=== PATIENT | male | born 1955 | race Caucasian/White ===

== ENCOUNTER 2017-10-15 13:45 | Observation (INO) | payer OTHER, SELFPAY ==
[2017-10-15] VITALS (18 sets, daily range): BP systolic 133–175; BP diastolic 71–87; PULSE 80–96; RESP 9–24; TEMP 36.2–36.7; O2SAT 95–100; BMI 30.5; BMI 30.6; BMI 29.2
--- NOTE | 2017-10-15 13:55 | RAD_ITS ---
STUDY: X-RAY CHEST REASON FOR EXAM: Male, 62 years old. 45 min after eating steak sandwich, felt throat closing, numbness to face and jaw, HX HEART CATH 2008 TECHNIQUE: Single AP portable view of the chest. COMPARISON: January 18, 2016 FINDINGS: Lungs are underexpanded. There is right new basilar atelectasis.. There is no demonstrated pleural abnormality. Normal size heart. Normal mediastinum and cecelia. Normal visualized pulmonary arteries. Normal visualized aortic arch and descending thoracic aorta. Normal visualized thoracic spine. Normal visualized ribs, clavicles, and shoulders. There is no demonstrated abnormality of the visualized soft tissue structures of the upper abdomen. RAD/Chest 1 View (Portable) IMPRESSION: There is right new basilar atelectasis.. Electronically Signed: Bianca Mendez MD at 14:40 EDT , Service support ,
[2017-10-15] MEDS: DiphenhydrAMINE 50 MG/ML Syringe IV ×2 (13:58→23:26)
[2017-10-15] MEDS: MethylPREDNISolone 125 MG/2 ML Vial IV (13:58)
[2017-10-15] MEDS: Albuterol 2.5 MG/3 ML VIAL.NEB. INHALATION (14:04)
[2017-10-15 14:51] LABS: Absolute Lymphocyte Count 2.76 X10^3/ul (0.83-4.51); Absolute Neutrophil Count 5.1 X10^3/uL (2.0-7.7); Basophil# 0.03 X10^3/uL; Basophil% 0.4 % (0-1); Eosinophil# 0.07 X10^3/uL; Eosinophils% 0.8 % (0-5); Hematocrit 39.1 % (40-54); Lymphocyte # 2.76 X10^3/ul (4.0); Lymphocyte % 32.5 % (19-41); Mean Corp Hgb Conc 33.2 g/gl (32-36); Mean Corpuscular Volume 87.3 fL (80-94); Mean Platelet Vol. 11.7 fl (6.2-12.0); Monocyte# 0.52 X10^3/uL; Monocyte% 6.1 % (0-10); Neutrophil # 5.11 X10^3/uL (2.7-7.7); Neutrophil % 60.1 % (47-70); Platelet Count 239 K/mm3 (150-450); RBC Distribution Width CV 12.8 % (11.6-14.6); RBC Distribution Width SD 41.1 fl (35.1-43.9); Red Blood Count 4.48 M/mm3 (4.6-6.2); White Blood Count 8.5 K/mm3 (4.4-11.0)
[2017-10-15 14:56] LABS: POSITIVE COUNT NO; POSITIVE DIFFERENTIAL NO; POSITIVE MORPHOLOGY NO
--- NOTE | 2017-10-15 15:05 | ED.VISSUMM ---
- ER Visit Summary Date of Service: 10/15/17 Chief Complaint: [allergic reaction] History of Present Illness: The patient is a 62 M [that presents with severe allergic reaction symptoms. He was at work when he noted his face to feel numb and funny and his eyes got very swollen. He had a red itchy hives and began to feel shortness of breath. EMS was called and he was given EpiPen injection and route. Upon arrival patient is tachycardic but his blood pressure is stable. He states he is having difficulty swallowing. He has bilateral periorbital edema and urticaria to his trunk. No prior history of severe allergic reaction or anaphylaxis. No known new exposures, bites, or stings.] Physical Examination: [General: The patient appears in moderate distress. Skin: Warm, dry, no pallor noted. Hives anterior trunk. Head: Normocephalic, atraumatic Neck: Supple, nontender. Eye: PERRLA, EOMI, bilateral periorbital edema ENT: Moist mucus membranes, mild edema of uvula and posterior pharynx Cardiovascular; tachycardic Rate and regular Rhythm, no gallups or rubs Respiratory: Patient is in no distress, no accessory muscle use, lungs are clear to auscultation, no wheezing, rales or rhonchi Musculoskeletal: normal ROM, no deformity, no tenderness, no swelling. 2+ radial and DP pulses symmetric. GI: No tenderness to palpation, no masses appreciated. No rebound, guarding, or rigidity noted. Neurological: A&O, normal strength and sensation. Psychiatric: Cooperative] Test Results: [CBC and BMP within normal limits. CXR shows atelectasis.] Emergency Department Course and Treatment: [Patient was given Benadryl, Solu-Medrol, Pepcid, and IV fluids. She was given a second dose of IM epinephrine for anaphylaxis. He did more dynamically he remained stable. On multiple frequent re-evaluations every several minutes he continued to have mild uvula and posterior pharynx edema but no worsening of the edema or airway compromise. At this time I feel patient requires admission for further observation in the intensive care unit. Patient is agreeable with this plan of care. Patient discussed with hospitalist Dr. Ruffin. Patient admitted to the ICU in improved condition.] Treatment Plan: [see above] Disposition: [admission, ICU] Impression: [Anaphylaxis - improved] Critical Care Time 60 minutes. This note was generated with [employer] dictation software. It may contain incorrect words, spelling, and punctuation that were not noted in review of the chart prior to signing ED Disposition - Plan for ED Patient: Chief Complaint: Allergic Reaction Referrals: Kiera Horan DO [Primary Care Provider] -
--- NOTE | 2017-10-15 15:08 | ED.DCSUM_ITS ---
- ER Visit Summary Date of Service: 10/15/17 Chief Complaint: [allergic reaction] History of Present Illness: The patient is a 62 M [that presents with severe allergic reaction symptoms. He was at work when he noted his face to feel numb and funny and his eyes got very swollen. He had a red itchy hives and began to feel shortness of breath. EMS was called and he was given EpiPen injection and route. Upon arrival patient is tachycardic but his blood pressure is stable. He states he is having difficulty swallowing. He has bilateral periorbital edema and urticaria to his trunk. No prior history of severe allergic reaction or anaphylaxis. No known new exposures, bites, or stings.] Physical Examination: [General: The patient appears in moderate distress. Skin: Warm, dry, no pallor noted. Hives anterior trunk. Head: Normocephalic, atraumatic Neck: Supple, nontender. Eye: PERRLA, EOMI, bilateral periorbital edema ENT: Moist mucus membranes, mild edema of uvula and posterior pharynx Cardiovascular; tachycardic Rate and regular Rhythm, no gallups or rubs Respiratory: Patient is in no distress, no accessory muscle use, lungs are clear to auscultation, no wheezing, rales or rhonchi Musculoskeletal: normal ROM, no deformity, no tenderness, no swelling. 2+ radial and DP pulses symmetric. GI: No tenderness to palpation, no masses appreciated. No rebound, guarding, or rigidity noted. Neurological: A&O, normal strength and sensation. Psychiatric: Cooperative] Test Results: [CBC and BMP within normal limits. CXR shows atelectasis.] Emergency Department Course and Treatment: [Patient was given Benadryl, Solu- Medrol, Pepcid, and IV fluids. She was given a second dose of IM epinephrine for anaphylaxis. He did more dynamically he remained stable. On multiple frequent re-evaluations every several minutes he continued to have mild uvula and posterior pharynx edema but no worsening of the edema or airway compromise. At this time I feel patient requires admission for further observation in the intensive care unit. Patient is agreeable with this plan of care. Patient discussed with hospitalist Dr. Ruffin. Patient admitted to the ICU in improved condition.] Treatment Plan: [see above] Disposition: [admission, ICU] Impression: [Anaphylaxis - improved] Critical Care Time 60 minutes. This note was generated with [employer] dictation software. It may contain incorrect words, spelling, and punctuation that were not noted in review of the chart prior to signing ED Disposition - Plan for ED Patient: Chief Complaint: Allergic Reaction Referrals: Kiera Horan DO [Primary Care Provider] -
[2017-10-15 15:10] LABS: BUN 18 mg/dL (7-18); Creatinine, Serum 1.22 mg/dL (0.70-1.30); Estimated Creatinine Clearance 65.65 ml/min; Glucose 194 mg/dL (74-106)
[2017-10-15 15:11] LABS: Anion Gap 6 (5-15); BUN/Creat Ratio 14.8 RATIO (10-20); Calcium,Total 8.6 mg/dL (8.5-10.1); Chloride 108 mmol/L (98-107); EST Glomerular Filtration Rate 64 mL/min (>60); Est Glom Filt Rate - Afr Amer 78 mL/min (>60); Potassium 3.4 mmol/L (3.5-5.1); Sodium Level 142 mmol/L (136-145)
[2017-10-15] MEDS: Ketorolac 15 MG/ML Vial IV (15:19)
--- NOTE | 2017-10-15 15:54 | PCM.HP.STD ---
Problem List (1) Anaphylactic reaction Status: Acute Qualifiers: Encounter type: initial encounter Qualified Code(s): T78.2XXA - Anaphylactic shock, unspecified, initial encounter History of Present Illness Date of Admission: 10/15/17 Chief Complaint: shortness of breath. facial swelling. The patient is a 62 year old M who is in his 1 PM today developed some swelling of his eyes and face. Thought that his left face go numb and started having shortness of breath. EMS was called and patient was and also noted to have hives. Patient received epinephrine. Patient brought to the hospital. In the emergency room, patient was noted to have uvular swelling. Received another dose of epinephrine, +125 mg Solu-Medrol and Benadryl. About 30 minutes earlier patient ate at [employer] restaurants and had normal order of steak and chilly. Patient states that he has had this before with no issues. Patient stated that his symptoms began 15 minutes after returning to work. Patient is unaware of any insect bite or sting. Patient states that he has been at his current place of work for the past several years and there is been no new chemicals that he is aware of. Patient denies any new medications. Patient does not take any medications for hypertension at this time. [] Past Medical History Past Medical History (Chronic Problems): Chronic Problems Depression (Chronic) GERD (gastroesophageal reflux disease) (Chronic) Restless leg syndrome (Chronic) Allergies No Known Allergies Allergy (Verified 01/21/13 08:16) Home Medications: Ambulatory Orders Medication Instructions Recorded Aspirin E.C. 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 Psychiatric History: Depression Smoking Status: Never smoker Tobacco Use: Non-smoker Alcohol: None Drugs: None - *Family History Maternal History Items: - - No allergic nor autoimmune disease Review of Systems Constitutional: Denies: Anorexia, Chills, Fever Eyes: Denies: Blurred vision, Double vision HEENT: Reports: Difficulty Swallowing, - - Left facial numbness. Facial swelling and lip swelling. Denies: Difficulty Hearing Cardiovascular: Denies: Chest Pain, Palpitations Respiratory: Reports: Shortness of Breath. Denies: Cough Gastrointestinal: Reports: Nausea. Denies: Abdominal Pain, Vomiting Genitourinary: Denies: Dysuria Musculoskeletal: Denies: Joint Pain, Joint Tenderness Skin: Reports: - - Patient did not know it but he was told that he had hives earlier. Neurological: Denies: Numbness, Tingling, Focal weakness Psychiatric: Denies: Anxiety, Depression Hematologic/ Lymphatic: Denies: Easy Bruising, Easy Bleeding, Hx of blood clot Comment: All review of systems are negative except as mentioned in the history of present illness and the other review of systems. VTE Information - Inpt Only VTE Present on Admission: No VTE Mechan Device Prophylaxis: None VTE Pharm Prophylaxis ordered?: Yes Patient Problems: Active and Suspected Problems Anaphylactic reaction (Acute) - Physical Exam General: Alert, Cooperative, No apparent distress HEENT: Atraumatic, Normocephalic, - - Does have swelling of his eyelids as well as below his eyelids. Patient is able to open his eyes. Oral: Moist Mucosa, No Gingival or Mucosal Lesions/ Ulcerations, - - Some uvular swelling but able to visualize the posterior pharynx Neck: No Nodes, Thyroid Normal Size and Texture Lungs: Clear to auscultation, Normal air movement, No rhonchi, No wheeze Cardiovascular: Regular rate, Regular Rhythm, Normal S1, Normal S2, No murmurs Abdomen: Bowel Sounds Present, Soft, Non Tender, Non-Distended, No Hepato-splenomegaly Extremities: No edema, No Calf Tenderness Skin: No breakdown, - - Some scattered macular lesions noted on the. No vesicles noted Musculoskeletal: No Tenderness to Palpation of Joints or Extremities, No Muscle Wasting Neurological: Neuro grossly intact, Motor Exam 5/5 strength throughout, Muscle tone normal Psych/Mental Status: Normal Affect, Appropriate Vital Signs Temp Pulse Resp BP Pulse Ox 36.7 C 90 17 156/71 H 99 10/15/17 13:53 10/15/17 15:00 10/15/17 15:00 10/15/17 15:00 10/15/17 15:28 Oxygen Flow Rate (L/min) 2 Oxygen Delivery Method Nasal Cannula Weight: 96.615 kg Body Mass Index (BMI) 30.5 Finger Stick Blood Glucose 68 Laboratory Tests Past 24 Hrs 10/15/17 10/15/17 14:30 14:30 WBC 8.5 RBC 4.48 L Hgb 13.0 Hct 39.1 L MCV 87.3 MCH 29.0 MCHC 33.2 RDW 12.8 RDW Differential 41.1 Plt Count 239 MPV 11.7 Immature Gran % (Auto) 0.100 Neut % (Auto) 60.1 Lymph % (Auto) 32.5 [place] % (Auto) 6.1 Eos % (Auto) 0.8 Baso % (Auto) 0.4 Absolute Neuts (auto) 5.1 Absolute Lymphs (auto) 2.76 Total Counted Not Reportable Sodium 142 Potassium 3.4 L Chloride 108 H Carbon Dioxide 28.0 Anion Gap 6 BUN 18 Creatinine 1.22 Estim Creat Clear Calc 65.65 Est GFR (MDRD) Af Amer 78 Est GFR (MDRD) Non-Af 64 BUN/Creatinine Ratio 14.8 Glucose 194 H Calcium 8.6 Clinical Impression(s) from Imaging Studies Chest X-Ray 10/15/17 13:55 IMPRESSION: There is right new basilar atelectasis.. Electronically Signed: Bianca Mendez MD at 14:40 EDT , Service support , Assessment/Plan All Active Problems Anaphylactic reaction (Acute) Asthmatic bronchitis (Acute) 1. Anaphylaxis Unclear source of the allergic reaction. Though I would suspect a food source being the possible etiology. Patient stated that his symptoms occurred 15 minutes after returning to work and 30 minutes after he ate. I advised the patient to avoid that rest until further clarification can be made in regards to the source of his anaphylaxis. Patient denies any new chemical exposures at work though chemical exposure could be the etiology of this reaction. Patient will need to follow-up with an cryptologic technician technical as outpatient Patient will need an EpiPen upon discharge and patient instructed to carry that with him at all times in case this were to happen again. Patient will be on Solu-Medrol plus Benadryl and Pepcid while he was here Patient be admitted to the ICU for closer monitoring. Anticipate if patient is doing better that he should be able to be discharged home on the and the case that I would recommend continue with a prednisone taper 2. DVT prophylaxis with Lovenox Case discussed with the patient's at bedside. Code Visit OBSV E&M: [id number] Initial observation care L3
--- NOTE | 2017-10-15 15:58 | HP.PCM_ITS ---
Problem List (1) Anaphylactic reaction Status: Acute Qualifiers: Encounter type: initial encounter Qualified Code(s): T78.2XXA - Anaphylactic shock, unspecified, initial encounter History of Present Illness Date of Admission: 10/15/17 Chief Complaint: shortness of breath. facial swelling. The patient is a 62 year old M who is in his 1 PM today developed some swelling of his eyes and face. Thought that his left face go numb and started having shortness of breath. EMS was called and patient was and also noted to have hives. Patient received epinephrine. Patient brought to the hospital. In the emergency room, patient was noted to have uvular swelling. Received another dose of epinephrine, +125 mg Solu-Medrol and Benadryl. About 30 minutes earlier patient ate at [employer] restaurants and had normal order of steak and chilly. Patient states that he has had this before with no issues. Patient stated that his symptoms began 15 minutes after returning to work. Patient is unaware of any insect bite or sting. Patient states that he has been at his current place of work for the past several years and there is been no new chemicals that he is aware of. Patient denies any new medications. Patient does not take any medications for hypertension at this time. [] Past Medical History Past Medical History (Chronic Problems): Chronic Problems Depression (Chronic) GERD (gastroesophageal reflux disease) (Chronic) Restless leg syndrome (Chronic) Allergies No Known Allergies Allergy (Verified 01/21/13 08:16) Home Medications: Ambulatory Orders Medication Instructions Recorded Aspirin E.C. 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 Psychiatric History: Depression Smoking Status: Never smoker Tobacco Use: Non-smoker Alcohol: None Drugs: None - *Family History Maternal History Items: - - No allergic nor autoimmune disease Review of Systems Constitutional: Denies: Anorexia, Chills, Fever Eyes: Denies: Blurred vision, Double vision HEENT: Reports: Difficulty Swallowing, - - Left facial numbness. Facial swelling and lip swelling. Denies: Difficulty Hearing Cardiovascular: Denies: Chest Pain, Palpitations Respiratory: Reports: Shortness of Breath. Denies: Cough Gastrointestinal: Reports: Nausea. Denies: Abdominal Pain, Vomiting Genitourinary: Denies: Dysuria Musculoskeletal: Denies: Joint Pain, Joint Tenderness Skin: Reports: - - Patient did not know it but he was told that he had hives earlier. Neurological: Denies: Numbness, Tingling, Focal weakness Psychiatric: Denies: Anxiety, Depression Hematologic/ Lymphatic: Denies: Easy Bruising, Easy Bleeding, Hx of blood clot Comment: All review of systems are negative except as mentioned in the history of present illness and the other review of systems. VTE Information - Inpt Only VTE Present on Admission: No VTE Mechan Device Prophylaxis: None VTE Pharm Prophylaxis ordered?: Yes Patient Problems: Active and Suspected Problems Anaphylactic reaction (Acute) - Physical Exam General: Alert, Cooperative, No apparent distress HEENT: Atraumatic, Normocephalic, - - Does have swelling of his eyelids as well as below his eyelids. Patient is able to open his eyes. Oral: Moist Mucosa, No Gingival or Mucosal Lesions/ Ulcerations, - - Some uvular swelling but able to visualize the posterior pharynx Neck: No Nodes, Thyroid Normal Size and Texture Lungs: Clear to auscultation, Normal air movement, No rhonchi, No wheeze Cardiovascular: Regular rate, Regular Rhythm, Normal S1, Normal S2, No murmurs Abdomen: Bowel Sounds Present, Soft, Non Tender, Non-Distended, No Hepato- splenomegaly Extremities: No edema, No Calf Tenderness Skin: No breakdown, - - Some scattered macular lesions noted on the. No vesicles noted Musculoskeletal: No Tenderness to Palpation of Joints or Extremities, No Muscle Wasting Neurological: Neuro grossly intact, Motor Exam 5/5 strength throughout, Muscle tone normal Psych/Mental Status: Normal Affect, Appropriate Vital Signs Temp Pulse Resp BP Pulse Ox 36.7 C 90 17 156/71 H 99 10/15/17 13:53 10/15/17 15:00 10/15/17 15:00 10/15/17 15:00 10/15/17 15:28 Oxygen Flow Rate (L/min) 2 Oxygen Delivery Method Nasal Cannula Weight: 96.615 kg Body Mass Index (BMI) 30.5 Finger Stick Blood Glucose 68 Laboratory Tests Past 24 Hrs 10/15/17 10/15/17 14:30 14:30 WBC 8.5 RBC 4.48 L Hgb 13.0 Hct 39.1 L MCV 87.3 MCH 29.0 MCHC 33.2 RDW 12.8 RDW Differential 41.1 Plt Count 239 MPV 11.7 Immature Gran % (Auto) 0.100 Neut % (Auto) 60.1 Lymph % (Auto) 32.5 [place] % (Auto) 6.1 Eos % (Auto) 0.8 Baso % (Auto) 0.4 Absolute Neuts (auto) 5.1 Absolute Lymphs (auto) 2.76 Total Counted Not Reportable Sodium 142 Potassium 3.4 L Chloride 108 H Carbon Dioxide 28.0 Anion Gap 6 BUN 18 Creatinine 1.22 Estim Creat Clear Calc 65.65 Est GFR (MDRD) Af Amer 78 Est GFR (MDRD) Non-Af 64 BUN/Creatinine Ratio 14.8 Glucose 194 H Calcium 8.6 Clinical Impression(s) from Imaging Studies Chest X-Ray 10/15/17 13:55 IMPRESSION: There is right new basilar atelectasis.. Electronically Signed: Bianca Mendez MD at 14:40 EDT , Service support , Assessment/Plan All Active Problems Anaphylactic reaction (Acute) Asthmatic bronchitis (Acute) 1. Anaphylaxis * Unclear source of the allergic reaction. Though I would suspect a food source being the possible etiology. * Patient stated that his symptoms occurred 15 minutes after returning to work and 30 minutes after he ate. * I advised the patient to avoid that rest until further clarification can be made in regards to the source of his anaphylaxis. * Patient denies any new chemical exposures at work though chemical exposure could be the etiology of this reaction. * Patient will need to follow-up with an loom changer as outpatient * Patient will need an EpiPen upon discharge and patient instructed to carry that with him at all times in case this were to happen again. * Patient will be on Solu-Medrol plus Benadryl and Pepcid while he was here * Patient be admitted to the ICU for closer monitoring. Anticipate if patient is doing better that he should be able to be discharged home on the and the case that I would recommend continue with a prednisone taper 2. DVT prophylaxis with Lovenox Case discussed with the patient's at bedside. Code Visit OBSV E&M: [id number] Initial observation care L3
--- NOTE | 2017-10-15 16:53 | NURSING ---
Pt's home medication list is incomplete. Pt's to bring in meds/dosages.
[2017-10-15] MEDS: 0.9% Normal Saline 1,000 ML 150 ML IV (20:01)
[2017-10-15 20:34] LABS: M R Staph aureus DNA By PCR Negative (Negative); Probe Check PASS; Specimen Processing Control PASS
[2017-10-15] MEDS: Acetaminophen 325 MG Tablet 650 MG PO (20:44)
[2017-10-15] MEDS: MELATONIN 3 MG TABLET PO (21:09)
[2017-10-15] MEDS: Aspirin E.C. 81 MG Tablet PO (21:10)
[2017-10-16] VITALS (15 sets, daily range): BP systolic 118–147; BP diastolic 54–94; PULSE 59–89; RESP 8–21; TEMP 36.4–36.5; O2SAT 95–100
[2017-10-16] MEDS: Acetaminophen 325 MG Tablet 650 MG PO (03:26)
[2017-10-16] MEDS: 0.9% NaCl Peripheral Flush Adult/Peds IV ×2 (03:30→06:02)
[2017-10-16 03:59] LABS: Hematocrit 37.5 % (40-54); Hemoglobin 13.1 g/dl (13.0-16.5); Mean Corp Hgb Conc 34.9 g/gl (32-36); Platelet Count 211 K/mm3 (150-450); RBC Distribution Width CV 12.5 % (11.6-14.6); RBC Distribution Width SD 39.2 fl (35.1-43.9); Red Blood Count 4.36 M/mm3 (4.6-6.2); White Blood Count 10.6 K/mm3 (4.4-11.0)
[2017-10-16 04:00] LABS: Scan Indicated on CBC? Y/N YES- FLAGS NOTED
[2017-10-16 04:07] LABS: Anion Gap 9 (5-15); BUN 14 mg/dL (7-18); BUN/Creat Ratio 13.5 RATIO (10-20); Calcium,Total 8.8 mg/dL (8.5-10.1); Chloride 112 mmol/L (98-107); Creatinine, Serum 1.04 mg/dL (0.70-1.30); EST Glomerular Filtration Rate 77 mL/min (>60); Est Glom Filt Rate - Afr Amer 93 mL/min (>60); Estimated Creatinine Clearance 77.02 ml/min; Glucose 156 mg/dL (74-106); Sodium Level 145 mmol/L (136-145)
[2017-10-16 04:22] LABS: Differential Comment SCANNED
[2017-10-16] MEDS: DiphenhydrAMINE 50 MG/ML Syringe IV (06:02)
--- NOTE | 2017-10-16 09:23 | CASEMGMT ---
CHRISTEL spoke w/RN caring for pt, she states pt is concerned about the cost of the Epipen he will need when discharged. CHRISTEL met w/pt, pt states he normally uses [facility] in [place] for scripts or gets scripts filled at the [facility]. Pt states that there was not yet a script called in to [facility]. He called [facility] however and was told the Epipen needs a prior auth and even with the prior auth the cost is $330. Pt called [facility] in [place] [facility] [address], the pharmacy there told pt they have a two pack generic Epipen, .3, and the cost without approval is $110. Pt asked if the script can be called in for this to [facility] [place], and his insurance can also be called to see about prior approval and lower the $110 cost. CHRISTEL explained will let the CM know and she will speak w/the physician. Pt also states he needs to make an appointment with the stripping shovel oiler at the [facility], as they do not know what caused this reaction. CHRISTEL offered support to pt. CHRISTEL spoke w/CM, explained the above information, she will follow up. ANTONIA Baumann, SEAT COVER MAKER
[2017-10-16] MEDS: Pantoprazole Sodium 20 MG Tablet PO (09:42)
[2017-10-16] MEDS: Multivitamins,Therapeutic Tablet 1 TABLET PO (09:42)
[2017-10-16] MEDS: DULoxetine Hcl 60 MG Capsule PO (09:42)
[2017-10-16] MEDS: Enoxaparin 40 MG/0.4 ML Syringe SC (09:43)
[2017-10-16] MEDS: Tamsulosin HCl 0.4 MG Capsule PO (09:43)
[2017-10-16] MEDS: Pramipexole Di-HCl 0.25 MG Tablet PO (09:43)
--- NOTE | 2017-10-16 11:47 | CASEMGMT ---
Addendum entered by Radha David 10/16/17 14:00: Per [facility], the covered med under pt's insurance will still be a $311 co-pay but they have a generic epi-pen that after $50 coupon applied will only be $58.49. Pt/ updated at this time and voice understanding. Pt given script at this time. Pt voices no further concerns/needs at this time. Pt is being discharged at this time. Nico BAIN CM Original Note: Pt with concerns about epi pen gaspar and script to [facility] at this time to check on coverage/co-pay. Nico BAIN CM
[2017-10-16] MEDS: Mag Hydrox/Al Hydrox/Simeth 30 ML UDC PO (12:19)
--- NOTE | 2017-10-16 13:39 | DCINST_ITS ---
- Discharge Diagnoses Current Active Problems: Current Active and Chronic Problems Anaphylactic reaction (Acute) You will use the following diet at home:: No restrictions Your food should be the consistency of: Regular Your liquids should be the consistency of: Regular/Thin Discharge Activity: Return to Normal Activity Weight Bearing Status: Full weight bearing Allergies/Adverse Reactions: Allergies No Known Allergies Allergy (Verified 01/21/13 08:16) Medications to take at Discharge Aspirin E.C. [Ecotrin] 81 mg PO QHS 01/21/13 Esomeprazole Mag Trihydrate [Nexium] 20 mg PO DAILY 06/05/15 Gluc/Andi-MSM#1/C/Fernando/Zia/Bor [Glucosamine-Chondroitin Caplet] 2 each PO DAILY 06/05/15 Melatonin/Pyridoxine [Melatonin 3 mg Tablet] 1 each PO QHS PRN PRN 06/05/15 Multivitamin [Daily Multiple Vitamin] 1 each PO DAILY 06/05/15 Ropinirole HCl [Requip] 0.5 mg PO DAILY 06/05/15 Tamsulosin HCl [Flomax] 0.4 mg PO DAILY 06/05/15 Duloxetine HCl 60 mg PO DAILY 10/15/17 Sildenafil Citrate [Sildenafil] 60 mg PO X1 PRN 10/15/17 Epinephrine [Epipen] 0.3 mg IJ PRN PRN #2 auto.injct 10/16/17 The following prescriptions were given: Epinephrine [Epipen] 0.3 mg IJ PRN PRN #2 auto.injct PRN Reason: Anaphylaxis Primary Care Physician: Kiera Horan DO [Primary Care Provider] - Test Results: Test results from this visit will be discussed in further detail at your follow- up appointment, if applicable. [facility] When: next week
--- NOTE | 2017-10-18 15:02 | PCM.DC.SUM ---
Discharge Date and Diagnosis Date of Admission: 10/15/17 Date of Discharge: 10/16/17 - Primary Discharge Diagnosis #1 anaphylactic reaction-exact etiology unknown #2 GERD #3 depression - Secondary Discharge Diagnosis Chronic Problems Depression (Chronic) GERD (gastroesophageal reflux disease) (Chronic) Restless leg syndrome (Chronic) Hospital Course and Treatment Operations: None Procedures: None Summary of Care Provided: The patient is a 62 year old M who was seen in the emergency room with a chief complaint of shortness of breath and generalized facial swelling. It developed approximately an hour after he ate at a restaurant. Patient had no known allergies to any foods. Examination in the emergency room showed the patient to have uvular swelling, he had received IV epinephrine and the squad due to hives and his facial swelling. He also had complained of some shortness of breath. Patient stated his symptoms started within an hour after eating at a restaurant where he had a steak and chili. Patient was admitted to the ICU, he was given IV Solu-Medrol, Benadryl, and Pepcid. On 10/16/17, patient was seen and examined in the ICU, he did not have any evidence of facial swelling and had no complaints of any shortness of breath. At that point I did not feel it was necessary to continue with oral prednisone usage as an outpatient or Benadryl. I gave him a prescription for an EpiPen to carry on him at all times, Discharge Activity: Return to Normal Activity Weight Bearing Status: Full weight bearing Home Medications: Medications to take at Discharge Aspirin E.C. [Ecotrin] 81 mg PO QHS 01/21/13 Esomeprazole Mag Trihydrate [Nexium] 20 mg PO DAILY 06/05/15 Gluc/Andi-MSM#1/C/Fernando/Zia/Bor [Glucosamine-Chondroitin Caplet] 2 each PO DAILY 06/05/15 Melatonin/Pyridoxine [Melatonin 3 mg Tablet] 1 each PO QHS PRN PRN 06/05/15 Multivitamin [Daily Multiple Vitamin] 1 each PO DAILY 06/05/15 Ropinirole HCl [Requip] 0.5 mg PO DAILY 06/05/15 Tamsulosin HCl [Flomax] 0.4 mg PO DAILY 06/05/15 Duloxetine HCl 60 mg PO DAILY 10/15/17 Sildenafil Citrate [Sildenafil] 60 mg PO X1 PRN 10/15/17 Epinephrine [Epipen] 0.3 mg IJ PRN PRN #2 auto.injct 10/16/17 Following Prescrptions Were Given to Patient: Epinephrine [Epipen] 0.3 mg IJ PRN PRN #2 auto.injct PRN Reason: Anaphylaxis Primary Care Physician: Kiera Horan DO [Primary Care Provider] - [facility] When: next week Disposition: Home Minutes spent on discharge:: 25 Patient Condition:: Stable Medical Necessity - Tobacco Use Smoking Status: Never smoker Tobacco Use: Non-smoker Meaningful Use Info Meaningful Use Diagnoses (Choose all that apply): None applicable
== END 2017-10-16 14:05 | disposition home or self-care (01) ==
LOC: ED 15:27 → ICU 16:18
PROVIDERS: Emergency Provider Emergency Medicine; Family Provider Internal Medicine; PCP Internal Medicine; Visit Provider Internal Medicine
DX: T78.2XXA Anaphylactic shock, unspecified, initial encounter (principal); K21.9 Gastro-esophageal reflux disease without esophagitis; F32.9 Major depressive disorder, single episode, unspecified; Z79.899 Other long term (current) drug therapy; Z79.82 Long term (current) use of aspirin; G25.81 Restless legs syndrome; L50.0 Allergic urticaria
CPT/HCPCS: 71045; 80048; 85025; 85027; 87641; 93005; 94640; 96361; 96365; 96372; 96375; 96376; 99218; 99285; J7030; J7040; A4216; G0378; J3490

== ENCOUNTER → 2018-05-07 12:04 | Outpatient (CLI) | payer OTHER, SELFPAY ==
[2017-10-15 16:37] VITALS: BMI 29.2
--- NOTE | 2018-05-07 12:08 | RAD_ITS ---
STUDY: X-RAY CHEST REASON FOR EXAM: Male, 63 years old. Cough. TECHNIQUE: PA and lateral views of the chest. COMPARISON: Portable AP upright chest x-ray October 15, 2017. FINDINGS: The lungs are clear and moderately expanded. There is no demonstrated pleural abnormality. Normal size heart. Normal mediastinum and cecelia. Normal visualized pulmonary arteries. Normal visualized aortic arch and descending thoracic aorta. There are stable degenerative changes of the visualized thoracic spine. Normal visualized ribs, clavicles, and shoulders. Surgical clips in the right upper quadrant of the abdomen consistent with prior cholecystectomy. RAD/Chest PA and Lateral IMPRESSION: No acute cardiopulmonary disease. Electronically Signed: Manoj Barnes MD at 13:04 EST , Service support ,
== END ==
PROVIDERS: Family Provider Internal Medicine; PCP Internal Medicine; Referring Provider Internal Medicine; Visit Provider Internal Medicine
DX: R05 Cough (principal)
CPT/HCPCS: 71046

== ENCOUNTER → 2021-05-14 16:48 | Outpatient (CLI) | payer OTHER, SELFPAY ==
--- NOTE | 2021-05-14 17:01 | CT_ITS ---
EXAM: CT HEAD WITHOUT INTRAVENOUS CONTRAST : 1955 CLINICAL INDICATION: L SIDED WEAKNESS TECHNIQUE: Multiple axial images were obtained of the head without intravenous contrast. This CT exam was performed using one or more of the following dose reduction techniques: automated exposure control, adjustment of the mA and/or kV according to patient size, and/or use of iterative reconstruction technique. This report was created using [employer] report generation technology. COMPARISON: None. FINDINGS: BRAIN AND EXTRA-AXIAL SPACES: Unremarkable. No intra- or extra-axial hemorrhage. No evidence of acute infarct. No intracranial mass or mass effect. There is preservation of the velasquez/white matter interface. Posterior fossa structures are unremarkable. Ventricles are appropriate for age. No hydrocephalus. Basal cisterns are patent. BONES/JOINTS: Unremarkable. No discrete lytic or blastic abnormalities. SINUSES: Unremarkable as visualized. Clear. MASTOID AIR CELLS: Unremarkable. Clear. ORBITS: Visualized globes, extraocular muscles, optic nerves and retrobulbar fat appear unremarkable. ASPECTS: 10 CT/Brain/Head without Contrast IMPRESSION: Negative head/brain CT without intravenous contrast. Individualized dose optimization techniques were used for this CT. at 0022 Reported and signed by: Angelo Avery MD Electronically Signed: Angelo Avery MD at 0:21 EST ,
== END ==
DX: R53.1 Weakness (principal)
CPT/HCPCS: 70450

== ENCOUNTER → 2021-06-06 17:49 | Outpatient (CLI) | payer OTHER, SELFPAY ==
--- NOTE | 2021-06-06 17:53 | MRI_ITS ---
STUDY: MRI CERVICAL SPINE WITHOUT CONTRAST REASON FOR EXAM: Male, 66 years old. NECK PAIN,LEFT RADICULOPATHY into arm and hand, N/T TECHNIQUE: Standardized fat and water weighted pulse sequences were obtained in the sagittal and axial planes. COMPARISON: None FINDINGS: Normal foramen magnum and brainstem-cervical cord junction. Normal craniovertebral junction. Normal anterior atlantoaxial articulation. Normal odontoid process. Normal cervical lordosis. No acute compression fracture or subluxation. Cervical facet arthritis is present. C2-3: Normal endplates. Disc degeneration/dehydration. Normal central canal and intervertebral neural foramina. C3-4: Normal endplates. Disc degeneration/dehydration with minimal disc space narrowing. Minimal annular bulging, without mass effect upon the thecal sac. Bilateral neural foraminal encroachment due to uncinate hypertrophy and facet hypertrophy, more severe on the right. C4-5: Normal endplates. Disc degeneration/dehydration with moderately severe disc space narrowing. Broad-based annular bulging with posterior osteophytes, flattening the ventral aspect of the thecal sac and minimally flattening the cervical cord. Bilateral neural foraminal encroachment due to uncinate and facet hypertrophy, more severe on the left. C5-6: Normal endplates. Disc degeneration/dehydration with moderately severe disc space narrowing. In addition to broad-based annular bulging, there is asymmetric posterior extension of disc signal intensity in a right paracentral location indicating disc extrusion which moderately flattens the right ventral aspect of the thecal sac and cervical cord. Neural foramina are narrowed bilaterally at this level by uncinate hypertrophy and facet hypertrophy, much more severe on the left. C6-7: Normal endplates. Moderately severe disc space narrowing with disc degeneration/dehydration. Mild flattening the ventral aspect of the thecal sac by annular bulging and posterior osteophytes, without significant mass effect upon the cervical cord. Bilateral neural foraminal encroachment due to uncinate and facet hypertrophy, more severe on the left. C7-T1: Normal endplates. Disc degeneration/dehydration. Minimal annular bulging. No intrinsic signal abnormalities noted within the cervical cord. No abnormal epidural fluid collection identified on this nonenhanced scan. Upper thoracic cord is unremarkable. Upper thoracic neural foramina are patent. Normal visualized soft tissue structures. MRI/Spine Cervical (Routine) IMPRESSION: Multilevel degenerative disc disease with annular bulges. Right paracentral disc extrusion at the C5/6 level. Neural foraminal encroachment at multiple levels due to uncinate and facet hypertrophy, more severe on the right at C3/4, and more severe on the left at C4/5, C5/6 and C6/7. Electronically Signed: Salazar Palomino MD at 3:58 EDT ,
== END ==
DX: M54.2 Cervicalgia (principal)
CPT/HCPCS: 72141

== ENCOUNTER → 2022-03-26 | Outpatient (CLI) | payer OTHER, SELFPAY ==
--- NOTE | 2022-03-26 15:34 | NEURO_ITS ---
NCS and/or EMG Patient Report Ordering Doctor: Sabino De Los Santos DATE OF SERVICE: 03/26/22 Noe presents for electrodiagnostic testing of the upper limbs. He reports numbness and tingling in both hands, worse on the right side. He reports constant pain in the right fourth digit. He has a history of previous right- sided carpal tunnel repair. Electrodiagnostic findings: Median motor nerve demonstrates normal distal latency and amplitude with reduced conduction velocity bilaterally. Prolonged median sensory latency at the wrist bilaterally. Normal ulnar and radial sensory responses. On needle EMG, 1+ fibrillations noted the right triceps, right pronator teres and right lower cervical paraspinals. Motor unit action potentials are of normal amplitude and duration. Decreased recruitment in the right triceps. Electrodiagnostic impression: This is an abnormal study in the upper limbs 1. Electrodiagnostic findings suggestive of bilateral median mononeuropathy. This is consistent with a mild bilateral carpal tunnel syndrome. 2. Electrodiagnostic findings consistent with acute right-sided C7 rad iculopathy. Consider correlation with cervical spine imaging.
== END | disposition home or self-care (01) ==
LOC: PSN 10:15
PROVIDERS: Referring Provider Student in an Organized Health Care Education/Training Program; Visit Provider Student in an Organized Health Care Education/Training Program
DX: R20.2 Paresthesia of skin (principal)
CPT/HCPCS: 95886; 95913